=== PATIENT | male | born 1960 | race Caucasian/White ===

== ENCOUNTER 2023-06-10 08:26 | Outpatient (CLI) | payer OTHER | END 2023-06-10 08:27 | disposition home or self-care (01) | LOC: CSHMRI 08:26 | PROVIDERS: ATTEND Family Medicine | DX: M47.26 Other spondylosis with radiculopathy, lumbar region (principal); M43.06 Spondylolysis, lumbar region; M25.48 Effusion, other site | CPT/HCPCS: 72148 ==